=== PATIENT | female | born 1950 | race Caucasian/White ===

== ENCOUNTER 2021-04-08 19:49 | Inpatient (IN) | payer MEDICARE, MEDICAID ==
[~2021-04-08] VITALS: Ht 152 cm; Wt 87.2 kg
[2021-04-08] MEDS ORDERED: HYDR-3820 PO (20:06)
[2021-04-08] MEDS ORDERED: LORA-404 PO (20:06)
[2021-04-08] MEDS ORDERED: ALBU90AE2 INH (20:06)
[2021-04-08] MEDS ORDERED: FAMO20TA5 PO (20:06)
[2021-04-08] MEDS ORDERED: LEVO137T2 PO (20:06)
[2021-04-08] MEDS ORDERED: UMEC1BLS INH (20:06)
--- NOTE | 2021-04-08 20:15 | ED Respiratory ---
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 HOGUE[facility] IN [place]--HAS NOT SEEN HIM IN ABOUT A MONTH HAS NOT BEEN VACCINATED FOR COVID-19 STATES SHE HAD COVID-19 IN NOVEMBER PT SMOKED 2 PPD, QUIT 2017 PCP: DR. HOGUE IN [place] Allergies and Home Medications Allergies Coded Allergies: latex (Verified Allergy, Unknown, 04/08/21) Patient Home Medication List Home Medication List Reviewed: Yes Albuterol Sulfate (Proair Digihaler) 90 Mcg Aer.pw.bas, (Reported) Entered as Reported by: PORTER PAREDES on 04/08/212005 Last Action: New Order Famotidine (Famotidine) 20 Mg Tablet, (Reported) Entered as Reported by: PORTER PAREDES on 04/08/212005 Last Action: New Order Hydrocodone/Acetaminophen (Hydrocodone-Acetamin 10-325 mg) 1 Each Tablet, (R eported) Entered as Reported by: PORTER PAREDES on 04/08/212005 Last Action: New Order Levothyroxine Sodium (Levothyroxine Sodium) 137 Mcg Tablet, (Reported) Entered as Reported by: PORTER PAREDES on 04/08/212005 Last Action: New Order Lorazepam (Ativan) 0.5 Mg Tablet, (Reported) Entered as Reported by: PORTER PAREDES on 04/08/212005 Last Action: New Order Umeclidinium Brm/Vilanterol Tr (Anoro Ellipta 62.5-25 Mcg INH) 1 Each Blst.w.dev, (Reported) Entered as Reported by: PORTER PAREDES on 04/08/212005 Last Action: New Order Review of Systems Review of Systems Constitutional: see HPI, chills; No dizziness; fever EENTM: no symptoms reported Respiratory: cough, short of breath Cardiovascular: see HPI, chest pain Gastrointestinal: no symptoms reported Genitourinary: no symptoms reported Musculoskeletal: no symptoms reported Skin: no symptoms reported Psychiatric/Neurological: No Symptoms Reported Hematologic/Lymphatic: No Symptoms Reported Immunological/Allergic: no symptoms reported Past Cjkcmku-Hpjvtl-Poieio Hx Patient Social History Tobacco Use?: Yes (SMOKED 2 PPD, QUIT 2017) Smoking Status: Former Smoker (2 PPD, QUIT 2017) Use of E-Cig and/or Vaping dev: No Substance use?: No Alcohol Use?: Yes (USED TO DRINK ) Pt feels they are or have been: No Past Medical History Surgery/Hospitalization HX: CHOLECYSTECTOMY BILATERAL TUBAL LIGATION Surgeries: Yes Gallbladder, Tubal Ligation Respiratory: Yes (O2 DEPENDENT AT 2L/NC) COPD Cardiac: Yes Hypertension Neurological: No PROVIDER RELATIONS SPECIALIST History: Menopausal Genitourinary: No Gastrointestinal: No Musculoskeletal: No Endocrine: Yes Hypothyroidsim, Diabetes, Non-Insulin dep HEENT: No Cancer: No Psychosocial: No Integumentary: No Blood Disorders: No Physical Exam Vital Signs - First Documented Capillary Refill : Height: '" Weight: lbs. oz. kg; BMI Method: General Appearance: obese, other (TALKS IN FULL SENTENCES, SLIGHTLY DYSPNEIC ON ARRIVAL; MILD SPEECH IMPEDIMENT) Neck: normal inspection Respiratory: normal breath sounds, no respiratory distress, no accessory muscle use Cardiovascular: regular rate, rhythm, no murmur Gastrointestinal: non tender, soft Extremities: normal inspection, no pedal edema, no calf tenderness, normal capillary refill Neurologic/Psychiatric: motivational speaker II-XII nml as tested, no motor/sensory deficits, alert, normal mood/affect, oriented x 3 Skin: normal color, warm/dry Focused Exam Lactate Level 04/08/21 20:30: Lactic Acid Level 0.78 Lactic Acid Level Laboratory Tests Test 04/08/21 20:30 Lactic Acid Level 0.78 MMOL/L (0.50-2.00) Progress/Results/Core Measures Suspected Sepsis SIRS Temperature: Pulse: Respiratory Rate: Laboratory Tests 04/08/21 20:30: White Blood Count 15.1H Blood Pressure / Mean: 04/08/21 20:30: Lactic Acid Level 0.78 Laboratory Tests 04/08/21 20:30: Creatinine 0.58L, INR Comment 0.9, Platelet Count 230, Total Bilirubin 0.5 Results/Orders Lab Results Laboratory Tests Test 04/08/21 20:08 04/08/21 20:20 04/08/21 20:30 04/08/21 20:34 Range/Units Blood Gas Puncture Site RIGHT RADIAL Blood Gas Patient Temperature 36.3 Arterial Blood pH 7.42 7.37-7.43 Arterial Blood Partial Pressure CO2 62 H 35-45 MMHG Arterial Blood Partial Pressure O2 55 L 79-93 MMHG Arterial Blood HCO3 40 H 23-27 MMOL/L Arterial Blood Total CO2 41.9 *H 21.0-31.0 MMOL/L Arterial Blood Oxygen Saturation 87 L 94-100 % Arterial Blood Base Excess 14.5 H -2.5-2.5 MMOL/L Qasim Test YES-POS Blood Gas Ventilator Setting NO Blood Gas Inspired Oxygen 5L SARS-CoV-2 RNA (RT-PCR) Not Detected Not Detecte White Blood Count 15.1 H 4.3-11.0 10^3/uL Red Blood Count 3.69 L 3.80-5.11 10^6/uL Hemoglobin 11.5 11.5-16.0 g/dL Hematocrit 39 35-52 % Mean Corpuscular Volume 105 H 80-99 fL Mean Corpuscular Hemoglobin 31 25-34 pg Mean Corpuscular Hemoglobin Concent 30 L 32-36 g/dL Red Cell Distribution Width 13.2 10.0-14.5 % Platelet Count 230 130-400 10^3/uL Mean Platelet Volume 10.4 9.0-12.2 fL Immature Granulocyte % (Auto) 2 % Neutrophils (%) (Auto) 73 42-75 % Lymphocytes (%) (Auto) 8 L 12-44 % Monocytes (%) (Auto) 12 0-12 % Eosinophils (%) (Auto) 4 0-10 % Basophils (%) (Auto) 1 0-10 % Neutrophils # (Auto) 11.0 H 1.8-7.8 10^3/uL Lymphocytes # (Auto) 1.3 1.0-4.0 10^3/uL Monocytes # (Auto) 1.8 H 0.0-1.0 10^3/uL Eosinophils # (Auto) 0.6 H 0.0-0.3 10^3/uL Basophils # (Auto) 0.1 0.0-0.1 10^3/uL Immature Granulocyte # (Auto) 0.3 H 0.0-0.1 10^3/uL Neutrophils % (Manual) 75 % Lymphocytes % (Manual) 8 % Monocytes % (Manual) 12 % Eosinophils % (Manual) 4 % Basophils % (Manual) 1 % Anisocytosis SLIGHT Erythrocyte Sedimentation Rate 1 0-30 MM/HR Prothrombin Time 12.9 12.2-14.7 SEC INR Comment 0.9 0.8-1.4 Activated Partial Thromboplast Time 34 24-35 SEC D-Dimer 0.48 0.00-0.49 UG/ML Sodium Level 141 135-145 MMOL/L Potassium Level 4.2 3.6-5.0 MMOL/L Chloride Level 95 L 98-107 MMOL/L Carbon Dioxide Level 40 H 21-32 MMOL/L Anion Gap 6 5-14 MMOL/L Blood Urea Nitrogen 8 7-18 MG/DL Creatinine 0.58 L 0.60-1.30 MG/DL Estimat Glomerular Filtration Rate 103 BUN/Creatinine Ratio 14 Glucose Level 129 H 70-105 MG/DL Lactic Acid Level 0.78 0.50-2.00 MMOL/L Calcium Level 9.2 8.5-10.1 MG/DL Corrected Calcium 9.5 8.5-10.1 MG/DL Magnesium Level 2.2 1.6-2.4 MG/DL Total Bilirubin 0.5 0.1-1.0 MG/DL Aspartate Amino Transf (AST/SGOT) 13 5-34 U/L Alanine Aminotransferase (ALT/SGPT) 19 0-55 U/L Alkaline Phosphatase 54 40-136 U/L Lactate Dehydrogenase 243 H 125-220 U/L Total Creatine Kinase 40 29-168 U/L Creatine Kinase MB 1.4 <6.6 NG/ML Myoglobin 33.4 10.0-92.0 NG/ML Troponin I < 0.028 <0.028 NG/ML C-Reactive Protein High Sensitivity 9.16 H 0.00-0.50 MG/DL B-Type Natriuretic Peptide 36.6 <100.0 PG/ML Total Protein 6.3 L 6.4-8.2 GM/DL Albumin 3.6 3.2-4.5 GM/DL Procalcitonin 0.03 <0.10 NG/ML Group A Streptococcus Screen NEGATIVE NEGATIVE My Orders Orders - SEBAS LUCAS DO Ed Iv/Invasive Line Start (04/08/21 20:03) Ekg Tracing (04/08/21 20:03) O2 (04/08/21 20:03) Monitor-Rhythm Ecg Trace Only (04/08/21 20:03) BNP (04/08/21 20:03) Cbc With Automated Diff (04/08/21 20:03) Comprehensive Metabolic Panel (04/08/21 20:03) Creatine Kinase (04/08/21 20:03) Creatine Kinase Mb (04/08/21 20:03) Hs C Reactive Protein (04/08/21 20:03) Fibrin Degradation Products (04/08/21 20:) Drug Screen Stat (Urine) (04/08/21 20:03) Lactic Acid Analyzer (04/08/21 20:03) Magnesium (04/08/21 20:03) Procalcitonin (Pct) (04/08/21 20:03) Protime With Inr (04/08/21 20:03) Partial Thromboplastin Time (04/08/21 20:03) Ua Culture If Indicated (04/08/21 20:03) Blood Culture (04/08/21 20:03) Erythrocyte Sedimentation Rate (04/08/21 20:03) Myoglobin Serum (04/08/21 20:03) Troponin I (04/08/21 20:03) Chest 1 View, Ap/Pa Only (04/08/21 20:03) LDH (04/08/21 20:03) Covid 19 Inhouse Test (04/08/21 20:03) Isolation Central Supply Req (04/08/21 20:03) Arterial Blood Gas (04/08/21 20:10) Rt Request For Service (04/08/21 20:27) Dexamethasone Injection (Decadron Inje (04/08/21 20:30) Rapid Strep A Screen (04/08/21 20:30) Manual Differential (04/08/21 20:30) Ceftriaxone (Rocephin) (04/08/21 21:45) Azithromycin Injection (Zithromax Inject (04/08/21 21:45) Medications Given in ED Current Medications Medications Dose Ordered Sig/Emre Route Start Time Stop Time Status Last Admin Dose Admin Azithromycin 500 mg/Sodium Chloride 255 ml @ 250 mls/hr ONCE ONCE IV 04/08/21 21:45 04/08/21 22:46 DC 04/08/21 21:58 250 MLS/HR Ceftriaxone Sodium 1000 mg/ Sterile Water 10 ml @ 200 mls/hr ONCE ONCE IV 04/08/21 21:45 04/08/21 21:47 DC 04/08/21 21:58 200 MLS/HR Dexamethasone Sodium Phosphate 10 mg ONCE ONCE IV 04/08/21 20:30 04/08/21 20:31 DC 04/08/21 20:36 10 MG Vital Signs/I&O 04/08/21 04/08/21 04/08/21 04/08/21 19:57 19:57 19:57 21:05 Temp 36.3 Pulse 96 Resp 22 B/P (MAP) 147/107 (120) Pulse Ox 99 99 99 O2 Delivery Nasal Cannula Nasal Cannula Nasal Cannula Nasal Cannula O2 Flow Rate 3.00 5.00 5.00 3.00 Capillary Refill : Progress Note : Progress Note PLACED IN ISOLATION ROOM PPE WORN AT ALL TIMES COVID-19 TESTING PERFORMED AND WAS NEGATIVE PLACED ON O2 AND SATS UP TO 100% ON 4L/NC--TITRATED DOWN TO 3L/NC AND O2 SATS 98% REPEAT ABG'S DRAWN, WITH DECREASED PH, INCREASED PCO2, BUT PT WITH NO WORSENING OF SYMPTOMS, AND MAINTAINING O2 SATS OF 98% ON 3L/NC PT PLACED ON BIPAP NO DETERIORATION IN PT'S CONDITION DURING ER STAY PT HAD NO COMPLAINTS FOR REMAINDER OF ER STAY ECG Initial ECG Impression Date: Apr 08, 2021 Initial ECG Impression Time: 20:23 Initial ECG Rate: 91 Initial ECG Rhythm: Normal Sinus Initial ECG Comparisson: No Previous ECG Available Diagnostic Imaging Comments CXR--PER RADIOLOGIST REPORT AT 2141 FINDINGS: The cardiac silhouette is mildly enlarged. Mild central pulmonary vascular congestion is present. Left greater than right bilateral predominantly interstitial opacities. No significant pleural effusion. No pneumothorax. No acute osseous abnormality. IMPRESSION: Left greater than right interstitial opacities are present. This may relate to interstitial edema given cardiomegaly and central pulmonary vascular congestion. Interstitial infiltrate, including Covid 19 would be an additional consideration. : Reviewed: Reviewed by Me Departure Communication (Admissions) 2199--SPOKE WITH DR. LORA, HOSPITALIST, ACCEPTS PT FOR ADMIT. Impression Primary Impression: Acute on chronic respiratory failure with hypoxia and hypercapnia Additional Impressions: Bilateral pneumonia UTI (urinary tract infection) Disposition: ADMITTED INPATIENT Condition: Stable Admissions Decision to Admit Reason: Admit from ER (General) Decision to Admit/Date: Apr 08, 2021 Time/Decision to Admit Time: 22:00 SEBAS LUCAS DO Apr 08, 2021 20:15
[2021-04-08 20:23] LABS: ABG BASE EXCESS 14.5 MMOL/L (-2.5-2.5); ABG OXYGEN SATURATION 87 % (94-100); ABG PCO2 62 MMHG (35-45); ABG PH 7.42 (7.37-7.43); ABG PO2 55 MMHG (79-93)
[2021-04-08 20:25] LABS: ABG TCO2 41.9 MMOL/L (21.0-31.0); ALLENS TEST YES-POS; INSPIRED O2 5L; PATIENT TEMP 36.3; VENTILATOR NO
[2021-04-08 20:44] LABS: BASOPHILS # (AUTO) 0.1 10^3/uL (0.0-0.1); BASOPHILS % (AUTO) 1 % (0-10); EOSINOPHILS # (AUTO) 0.6 10^3/uL (0.0-0.3); EOSINOPHILS % (AUTO) 4 % (0-10); HEMATOCRIT 39 % (35-52); HEMOGLOBIN 11.5 g/dL (11.5-16.0); LYMPHOCYTES # (AUTO) 1.3 10^3/uL (1.0-4.0); LYMPHOCYTES % (AUTO) 8 % (12-44); MEAN CORPUSCULAR HEMOGLOBIN 31 pg (25-34); MEAN CORPUSCULAR HGB CONC 30 g/dL (32-36); MEAN CORPUSCULAR VOLUME 105 fL (80-99); MEAN PLATELET VOLUME 10.4 fL (9.0-12.2); MONOCYTES # (AUTO) 1.8 10^3/uL (0.0-1.0); MONOCYTES % (AUTO) 12 % (0-12); NEUTROPHILS % (AUTO) 73 % (42-75); PLATELET COUNT 230 10^3/uL (130-400); WHITE BLOOD COUNT 15.1 10^3/uL (4.3-11.0)
[2021-04-08 20:59] LABS: FIBRIN DEGRADATION PRODUCTS 0.48 UG/ML (0.00-0.49); INR 0.9 (0.8-1.4); PROTHROMBIN TIME PATIENT 12.9 SEC (12.2-14.7)
[2021-04-08 21:06] LABS: ALANINE AMINOTRANSFERASE 19 U/L (0-55); ALBUMIN 3.6 GM/DL (3.2-4.5); ALKALINE PHOSPHATASE 54 U/L (40-136); BILIRUBIN,TOTAL 0.5 MG/DL (0.1-1.0); BUN/CREATININE RATIO 14; CALCIUM 9.2 MG/DL (8.5-10.1); CARBON DIOXIDE 40 MMOL/L (21-32); CHLORIDE 95 MMOL/L (98-107); CREATINE KINASE 40 U/L (29-168); CREATININE SERUM 0.58 MG/DL (0.60-1.30); GFR ESTIMATED 103; GLUCOSE 129 MG/DL (70-105); MAGNESIUM 2.2 MG/DL (1.6-2.4); POTASSIUM 4.2 MMOL/L (3.6-5.0); SODIUM 141 MMOL/L (135-145); TOTAL PROTEIN 6.3 GM/DL (6.4-8.2)
[2021-04-08 21:31] LABS: CREATINE KINASE MB 1.4 NG/ML (<6.6)
--- NOTE | 2021-04-08 21:36 | Diagnostic Imaging Report ---
INDICATION: Dyspnea. COMPARISON: None available. TECHNIQUE: Single radiograph of the chest dated April 08, 2021. FINDINGS: The cardiac silhouette is mildly enlarged. Mild central pulmonary vascular congestion is present. Left greater than right bilateral predominantly interstitial opacities. No significant pleural effusion. No pneumothorax. No acute osseous abnormality. IMPRESSION: Left greater than right interstitial opacities are present. This may relate to interstitial edema given cardiomegaly and central pulmonary vascular congestion. Interstitial infiltrate, including Covid 19 would be an additional consideration. Dictated by: Dictated on workstation # [id number]
[2021-04-08 21:40] LABS: ANISOCYTOSIS SLIGHT; BASOPHILS % (MANUAL) 1 %; EOSINOPHILS % (MANUAL) 4 %; LYMPHOCYTES % (MANUAL) 8 %; MONOCYTES % (MANUAL) 12 %; NEUTROPHILS % (MANUAL) 75 %
[2021-04-08 21:41] LABS: ERYTHROCYTE SEDIMENTATION RATE 1 MM/HR (0-30)
[2021-04-08] MEDS ORDERED: cefTRIAXone 1,000 MG in WATER (STERILE) FOR INJECTION 10 ML IV ONE (21:45)
[2021-04-08] MEDS ORDERED: AZITHROMYCIN INJECTION 500 MG in NS (IVPB) 250 ML IV ONE (21:45)
[2021-04-08 22:32] LABS: ABG BASE EXCESS 13.1 MMOL/L (-2.5-2.5); ABG OXYGEN SATURATION 98 % (94-100); ABG PO2 117 MMHG (79-93)
[2021-04-08 22:34] LABS: ABG PCO2 94 MMHG (35-45); ABG PH 7.26 (7.37-7.43)
[2021-04-08 22:35] LABS: ABG TCO2 43.3 MMOL/L (21.0-31.0); ALLENS TEST YES-POS; INSPIRED O2 3L; PATIENT TEMP 36.3; VENTILATOR NO
[2021-04-08 22:54] LABS: BILIRUBIN,URINE NEGATIVE (NEGATIVE); CLARITY,URINE CLEAR; COLOR,URINE YELLOW; GLUCOSE, URINE (UA) NEGATIVE (NEGATIVE); KETONES,URINE NEGATIVE (NEGATIVE); LEUKOCYTE ESTERASE ,URINE 1+ (NEGATIVE); NITRITE,URINE NEGATIVE (NEGATIVE); PH,URINE 7.5 (5-9); PROTEIN,URINE NEGATIVE (NEGATIVE)
[2021-04-08 22:55] VITALS: BP 123/75
[2021-04-08 23:19] LABS: BACTERIA,URINE TRACE /HPF
[2021-04-08 23:20] LABS: AMPHETAMINE SCREEN, URINE NEGATIVE (NEGATIVE); BARBITURATE SCREEN URINE NEGATIVE (NEGATIVE); BENZODIAZEPINES SCREEN URINE NEGATIVE (NEGATIVE); CANNABINOID SCREEN, URINE NEGATIVE (NEGATIVE); COCAINE SCREEN URINE NEGATIVE (NEGATIVE); METHADONE STAT NEGATIVE (NEGATIVE); METHAMPHETAMINE SCREEN URINE S NEGATIVE (NEGATIVE); OPIATE SCREEN URINE POSITIVE (NEGATIVE); OXYCODONE STAT NEGATIVE (NEGATIVE); PROPOXYPHENE STAT NEGATIVE (NEGATIVE); TRICYCLIC ANTIDEPRESSANTS SCRE NEGATIVE (NEGATIVE)
[2021-04-08 23:54] VITALS: BP 135/81
[2021-04-09] VITALS (12 sets, daily range): BP systolic 107–147; BP diastolic 62–107
[2021-04-09 00:42] LABS: ABG BASE EXCESS 13.2 MMOL/L (-2.5-2.5); ABG OXYGEN SATURATION 96 % (94-100); ABG PO2 86 MMHG (79-93)
[2021-04-09] MEDS ORDERED: ONDANSETRON 4 MG/2 ML (SDV) Z0FRAN IV PRN (00:45)
[2021-04-09] MEDS ORDERED: 1/2 NS IV SOLUTION 1,000 ML IV SCH (00:45)
[2021-04-09] MEDS ORDERED: IBUPROFEN 800 MG (MOTRIN) TAB PO PRN (00:45)
[2021-04-09 00:46] LABS: ABG PCO2 83 MMHG (35-45); ABG TCO2 42.5 MMOL/L (21.0-31.0); ALLENS TEST YES-POS
[2021-04-09 00:47] LABS: INSPIRED O2 30%; PATIENT TEMP 36.9; VENTILATOR NO
[2021-04-09] MEDS: methylPREDNISolone 125 MG (Solu-MEDROL) VIAL IV SCH ×2 (01:01→05:46)
[2021-04-09] MEDS: RT-ALBUTEROL/IPRATROPIUM 3 ML (DUONEB) VIAL INH SCH ×6 (01:36→22:56)
[2021-04-09 04:37] LABS: ABG BASE EXCESS 13.7 MMOL/L (-2.5-2.5); ABG OXYGEN SATURATION 93 % (94-100); ABG PH 7.36 (7.37-7.43); ABG PO2 72 MMHG (79-93)
[2021-04-09 04:40] LABS: ABG PCO2 72 MMHG (35-45); ABG TCO2 42.1 MMOL/L (21.0-31.0)
[2021-04-09 04:41] LABS: ALLENS TEST YES-POS; INSPIRED O2 35%; PATIENT TEMP 36.5; VENTILATOR NO
[2021-04-09 06:03] LABS: BASOPHILS % (AUTO) 0 % (0-10); EOSINOPHILS % (AUTO) 0 % (0-10); HEMATOCRIT 38 % (35-52); HEMOGLOBIN 11.3 g/dL (11.5-16.0); LYMPHOCYTES # (AUTO) 0.5 10^3/uL (1.0-4.0); LYMPHOCYTES % (AUTO) 4 % (12-44); MEAN CORPUSCULAR HEMOGLOBIN 31 pg (25-34); MEAN CORPUSCULAR HGB CONC 29 g/dL (32-36); MEAN CORPUSCULAR VOLUME 105 fL (80-99); MEAN PLATELET VOLUME 10.8 fL (9.0-12.2); MONOCYTES # (AUTO) 0.1 10^3/uL (0.0-1.0); MONOCYTES % (AUTO) 1 % (0-12); NEUTROPHILS # (AUTO) 10.4 10^3/uL (1.8-7.8); NEUTROPHILS % (AUTO) 93 % (42-75); PLATELET COUNT 207 10^3/uL (130-400); WHITE BLOOD COUNT 11.2 10^3/uL (4.3-11.0)
[2021-04-09 06:17] LABS: POTASSIUM 4.5 MMOL/L (3.6-5.0)
[2021-04-09 06:18] LABS: CALCIUM 8.9 MG/DL (8.5-10.1)
[2021-04-09 06:22] LABS: CREATININE SERUM 0.52 MG/DL (0.60-1.30)
[2021-04-09] MEDS: ENOXAPARIN 40 MG/0.4 ML (LOVENOX) SYR SC SCH (08:57)
--- NOTE | 2021-04-09 10:30 | Tele-ICU Consult ---
History of Present Illness History of Present Illness Date Seen by Provider: Apr 09, 2021 Time Seen by Provider: 09:50 Date of Admission Patient acknowledged, consented, and participated in this virtual visit which was conducted using real time audio/video. Thank you for asking us to see this patient for respiratory insufficiency and distress due to AECOPD with hypoxia and hypercapnia caused by B pna. HPC: Recent events: Presented through ER and placed on BiPAP 20/8 at 35%, duonebs, medrol and abx. PMH: COPD on 3 LPM home O2, htn., DM2, hypothyroid, GERD. SH: smoking history: quit 2017. FH: Non-contributory ROS: limited by patient's clinical condition, but limited to HPI PE: VSS. Obese. Mild distress. O2 sat 99 % on 7 LPM high flow placed on patient in order to eat. HEENT: No obvious masses, adenopathy or JVD. Chest: clear to auscultation. CV: RRR S1 S2 No murmur or added sounds. Abd: Non-tender. Bowel sounds Y. : Unremarkable. Mahan N. INTEGRATION ANALYST/psychiatric: Alert and oriented, grossly intact. No obvious focal findings. Extremities: No edema. Capillary refill < 3 seconds. Skin: unremarkable. Results: Elevated WCC 15.1 CO2 40. Decreased Hb 11.1 AB.36/72/72 on BiPAP. A/P: Respiratory insufficiency/distress: Cont Duonebs. Could decrease Solumedrol to daily and in AM 03/10/21 switch to Prednisone 40 mg/day for 5 days. Wean O2 as tolerated. Available chart/ vitals / labs /images reviewed. CXR w B infilts L> R. Video assessment done using teleICU camera, rest of exam as per RN. Monitor for increasing oxygenation needs and/or need for ICU transfer. Critical Care: critically ill patient. Cont AZT and Ceftriaxone. Cont Lovenox Discussed with Dr. Choudhury and DILMA Gurrola. Asked RN to reach out to eICU if any questions or concerns later. Time spent with patient/coordination of care with other health professionals (mins): 40 Allergies and Home Medications Allergies Coded Allergies: latex (Verified Allergy, Unknown, 04/08/21) Past Medical/Social/Family Hx Patient Social History Tobacco Use?: No Smoking Status: Former Smoker Use of E-Cig and/or Vaping dev: No Substance use?: No Alcohol Use?: No Pt stated abuse/neglect: No Immunizations Up To Date Influenza Vaccine Up-to-Date: No; Not Current Tetanus Booster (TDap): Unknown Hepatitis A: No Hepatitis B: No TB Skin Test: None Current Status status: No status: No Advance Directives: No Communicates: Verbally Primary Language: Argentine Preferred Spoken Language: Argentine Is interpretation needed?: No Sensory deficits: Vision impairment Implanted or Applied Medical D: None Review of Systems Constitutional: weakness, other (see free text) All Other Systems Reviewed Negative Unless Noted: Yes Sepsis Event Evaluation Height, Weight, BMI Height: '" Weight: lbs. oz. kg; 37.43 BMI Method: Exam Exam Patient acknowledged, consented, and participated in this virtual visit which was conducted using real time audio/video Vital Signs Date Time Temp Pulse Resp B/P (MAP) Pulse Ox O2 Delivery O2 Flow Rate FiO2 04/09/21 09:51 92 High Flow N/C 7.00 04/09/21 09:50 89 Nasal Cannula 5.00 04/09/21 09:46 Nasal Cannula 4.00 04/09/21 09:45 92 Nasal Cannula 4.00 04/09/21 08:09 35.8 04/09/21 07:52 73 20 96 35.00 04/09/21 07:00 69 04/09/21 04:27 36.4 NIV Bilevel 35.00 04/09/21 04:00 69 21 115/66 (82) 94 NIV Bilevel 35.00 04/09/21 02:00 76 20 117/64 (81) 93 NIV Bilevel 35.00 04/09/21 01:36 69 20 94 35.00 04/09/21 01:06 36.3 96 99 32 04/09/21 01:00 84 21 146/105 (119) 95 NIV Bilevel 35.00 04/09/21 00:46 80 04/09/21 00:43 36.5 87 18 143/93 97 NIV Bilevel 35.00 04/09/21 00:43 36.5 78 18 143/93 (110) 97 NIV Bilevel 35.00 04/09/21 00:37 97 NIV Bilevel 35 04/09/21 00:24 36.7 77 18 156/85 94 NIV Bilevel 30.00 04/08/21 23:54 84 20 96 30.00 04/08/21 22:55 92 24 97 30.00 04/08/21 21:05 99 Nasal Cannula 3.00 04/08/21 19:57 99 Nasal Cannula 5.00 04/08/21 19:57 36.3 96 22 147/107 (120) 99 Nasal Cannula 5.00 04/08/21 19:57 Nasal Cannula 3.00 I & O 04/09/21 07:00 Intake Total 290 ml Output Total 125 ml Balance 165 ml Height & Weight Height: '" Weight: lbs. oz. kg; 37.43 BMI Method: General Appearance: Obese Capillary Refill: Less Than 3 Seconds Peripheral Pulses: 1+ Dorsalis Pedis (R), 1+ Left Dors-Pedis (L) Gastrointestinal: non tender, soft Results Lab Laboratory Tests 04/08/21 20:30 04/09/21 05:25 Assessment/Plan Assessment/Plan See free text Critical Care: Critically Ill Patient Advance Care Discussion: developed treatment plan Time spent on discussion(mins): 5 JACK KLEIN MD Apr 09, 2021 10:30
[2021-04-09] MEDS ORDERED: IBUP-2473 PO (11:15)
[2021-04-09] MEDS ORDERED: CALC-250 PO (11:15)
[2021-04-09] MEDS ORDERED: IPRA3AMP31 NEB (11:15)
[2021-04-09] MEDS ORDERED: guaiFENesin (MUCINEX) 600 MG TAB PO ONE (11:30)
--- NOTE | 2021-04-09 11:56 | History & Physical-Hospitalist ---
History of Present Illness HPI/Chief Complaint Taylor Matamoros is a 70 year old female who presented with shortness of breath. She also reports cough. She has had fevers. She has been coughing up phlegm. She denies chest pain. She denies abdominal pain. She says she has had nausea and vomiting. She reports having some diarrhea. She had reportedly ran out of her oxygen at home and was hypoxic on arrival. She has a history of COPD. She is a former smoker. Source: patient Exam Limitations: no limitations Date Seen 04/09/21 Time Seen by a Provider: 08:45 Attending Physician Sarai Ayala DO PCP No,Local Physician Referring Physician Date of Admission Apr 08, 2021 at 22:00 Home Medications & Allergies Home Medications Reviewed patient Home Medication Reconciliation performed by pharmacy medication reconciliations injection molding process technician and/or nursing. Patients Allergies have been reviewed. Allergies Allergies Coded Allergies latex (Verified Allergy, Unknown, 04/08/21) Past Rdmqtdf-Bfsont-Dozcyw Hx Patient Social History Tobacco Use?: No Smoking Status: Former Smoker Use of E-Cig and/or Vaping dev: No Substance use?: No Alcohol Use?: No Pt feels they are or have been: No Immunizations Up To Date Tetanus Booster (TDap): Unknown Hepatitis A: No Hepatitis B: No Current Status status: No status: No Advance Directives: No Communicates: Verbally Primary Language: Ivorian Preferred Spoken Language: Ivorian Is interpretation needed?: No Sensory deficits: Vision impairment Implanted or Applied Medical D: None Past Medical History Surgeries: Gallbladder, Tubal Ligation COPD Hypertension 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 History: Menopausal Hypothyroidsim, Diabetes, Non-Insulin dep Blood Disorders: No Family Medical History No Pertinent Family Hx Review of Systems Constitutional: fever, malaise EENTM: no symptoms reported Respiratory: cough, phlegm, short of breath Cardiovascular: no symptoms reported Gastrointestinal: diarrhea, nausea, vomiting Genitourinary: no symptoms reported Musculoskeletal: no symptoms reported Skin: no symptoms reported Psychiatric/Neurological: No Symptoms Reported Physical Exam Physical Exam Vital Signs Vital Signs - First Documented 04/09/21 00:37 FiO2 35 Capillary Refill : Less Than 3 Seconds Height, Weight, BMI Height: '" Weight: lbs. oz. kg; 37.43 BMI Method: General Appearance: No Apparent Distress, Obese HEENT: PERRL/EOMI, Other (wearing BiPAP) Neck: Normal Inspection, Supple Respiratory: Lungs Clear, No Respiratory Distress, Other (wearing BiPAP) Cardiovascular: Regular Rate, Rhythm, No Edema, No Murmur Gastrointestinal: Normal Bowel Sounds, Non Tender, Soft Extremity: Normal Inspection, Non Tender, No Pedal Edema Neurologic/Psychiatric: Alert, Oriented x3, No Motor/Sensory Deficits, Normal Mood/Affect Skin: Normal Color, Warm/Dry Results Results/Procedures Labs Laboratory Tests 04/08/21 20:30 04/09/21 05:25 Patient resulted labs reviewed. Imaging: Reviewed Imaging Films, Reviewed Imaging Report Assessment/Plan Admission Diagnosis Acute on chronic respiratory failure with hypoxia and hypercapnia Admission Status: Inpatient Order (span 2 midnights) Reason for Inpatient Admission: Respiratory failure Assessment and Plan Acute on chronic respiratory failure with hypoxia and hypercapnia COPD with acute exacerbation Community acquired pneumonia ABG with acute hypercapnia, hypoxia Started on BiPAP Started on steroids, decrease dose Chest xray with left > right infiltrates Started on Rocephin and Azithromycin Consult pulmonology, appreciate assistance, discussed case with Dr. Reza Hypothyroidism GERD Continue home meds Obesity Clincially significant, no acute management needs DVT prophylaxis: Lovenox Diagnosis/Problems Diagnosis/Problems (1) Acute on chronic respiratory failure with hypoxia and hypercapnia Status: Acute (2) COPD with acute exacerbation Status: Acute (3) PNA (pneumonia) Status: Acute (4) Obesity Status: Chronic (5) Hypothyroidism Status: Chronic (6) GERD (gastroesophageal reflux disease) Status: Chronic KURTIS LOPEZ MD Apr 09, 2021 11:56
[2021-04-09] MEDS: RT-ALBUTEROL HFA 8.5 GM INHALER IH SCH ×2 (18:02→22:57)
[2021-04-09] MEDS: guaiFENesin (MUCINEX) 600 MG TAB PO SCH (20:04)
[2021-04-09] MEDS: AZITHROMYCIN 500 MG/NS 250 ML IVPB IV SCH ×2 (20:04)
[2021-04-09] MEDS: cefTRIAXone 1,000 MG/SWFI 10 ML IV PUSH IV SCH ×2 (20:04)
[2021-04-10] VITALS (8 sets, daily range): BP systolic 113–158; BP diastolic 51–97
[2021-04-10] MEDS: RT-ALBUTEROL/IPRATROPIUM 3 ML (DUONEB) VIAL INH SCH ×3 (02:02→11:12)
[2021-04-10] MEDS: RT-ALBUTEROL HFA 8.5 GM INHALER IH SCH ×3 (02:02→21:19)
[2021-04-10] MEDS: ACETAMINOPHEN 500 MG TAB (TYLENOL) PO PRN ×2 (05:42→20:14)
[2021-04-10] MEDS: predniSONE 20 MG TAB PO SCH (05:42)
[2021-04-10 05:44] LABS: BASOPHILS % (AUTO) 0 % (0-10); EOSINOPHILS # (AUTO) 0.1 10^3/uL (0.0-0.3); EOSINOPHILS % (AUTO) 0 % (0-10); HEMATOCRIT 37 % (35-52); HEMOGLOBIN 11.2 g/dL (11.5-16.0); LYMPHOCYTES # (AUTO) 1.6 10^3/uL (1.0-4.0); LYMPHOCYTES % (AUTO) 9 % (12-44); MEAN CORPUSCULAR HEMOGLOBIN 32 pg (25-34); MEAN CORPUSCULAR HGB CONC 30 g/dL (32-36); MEAN CORPUSCULAR VOLUME 105 fL (80-99); MEAN PLATELET VOLUME 10.9 fL (9.0-12.2); MONOCYTES # (AUTO) 1.7 10^3/uL (0.0-1.0); MONOCYTES % (AUTO) 10 % (0-12); NEUTROPHILS # (AUTO) 13.9 10^3/uL (1.8-7.8); NEUTROPHILS % (AUTO) 80 % (42-75); PLATELET COUNT 227 10^3/uL (130-400); WHITE BLOOD COUNT 17.4 10^3/uL (4.3-11.0)
[2021-04-10 06:07] LABS: POTASSIUM 4.5 MMOL/L (3.6-5.0)
[2021-04-10 06:08] LABS: CALCIUM 9.1 MG/DL (8.5-10.1)
[2021-04-10 06:12] LABS: CREATININE SERUM 0.57 MG/DL (0.60-1.30)
[2021-04-10] MEDS: guaiFENesin (MUCINEX) 600 MG TAB PO SCH ×2 (08:38→20:14)
[2021-04-10] MEDS: ENOXAPARIN 40 MG/0.4 ML (LOVENOX) SYR SC SCH (08:38)
[2021-04-10] MEDS: FAMOTIDINE 20 MG (PEPCID) TABLET PO SCH (08:38)
[2021-04-10] MEDS: LEVOTHYROXINE 112 MCG (LEVOTHROID) TAB PO SCH (08:38)
[2021-04-10] MEDS: LEVOTHYROXINE 25 MCG (LEVOTHROID) TAB PO SCH (08:38)
[2021-04-10] MEDS ORDERED: methylPREDNISolone 125 MG (Solu-MEDROL) VIAL IV SCH (09:00)
[2021-04-10] MEDS: UMECLIDINIUM BROMIDE (INCRUSE ELLIPTA) 7'S IH SCH (11:12)
[2021-04-10] MEDS: LORazepam 0.5 MG (ATIVAN) TABLET PO PRN ×2 (11:19→21:54)
--- NOTE | 2021-04-10 11:44 | Progress Note - Hospitalist ---
Subjective HPI/CC On Admission Date Seen by Provider: Apr 10, 2021 Time Seen by Provider: 09:10 Taylor Matamoros is a 70 year old female who presented with shortness of breath. She also reports cough. She has had fevers. She has been coughing up phlegm. She denies chest pain. She denies abdominal pain. She says she has had nausea and vo miting. She reports having some diarrhea. She had reportedly ran out of her oxygen at home and was hypoxic on arrival. She has a history of COPD. She is a former smoker. Subjective/Events-last exam She is doing better today. She is sitting in her bedside chair. She is still a bit short of breath. She needs to use the restroom. Focused Exam Lactate Level 04/08/21 20:30: Lactic Acid Level 0.78 Objective Exam Vital Signs Vital Signs Date Time Temp Pulse Resp B/P (MAP) Pulse Ox O2 Delivery O2 Flow Rate FiO2 04/10/21 11:20 36.4 100 20 127/51 (76) 96 High Flow N/C 3.00 04/09/21 01:06 32 Capillary Refill : Less Than 3 Seconds General Appearance: No Apparent Distress, Obese Respiratory: Lungs Clear, Normal Breath Sounds, No Respiratory Distress Cardiovascular: Regular Rate, Rhythm, No Edema, Systolic Murmur Gastrointestinal: Normal Bowel Sounds, Non Tender, Soft Extremity: Normal Inspection, Non Tender, No Pedal Edema Neurologic/Psychiatric: Alert, No Motor/Sensory Deficits, Normal Mood/Affect Skin: Normal Color, Warm/Dry Results/Procedures Lab Laboratory Tests 04/10/21 05:20 Patient resulted labs reviewed. Imaging: Reviewed Imaging Films, Reviewed Imaging Report Assessment/Plan Assessment and Plan Assess & Plan/Chief Complaint Acute on chronic respiratory failure with hypoxia and hypercapnia COPD with acute exacerbation Community acquired pneumonia Continue Prednisone MAT protocol Continue Rocephin and Azithromycin Pulmonology following, appreciate assistance Hypothyroidism GERD Continue home meds Obesity Clincially significant, no acute management needs DVT prophylaxis: Lovenox Diagnosis/Problems Diagnosis/Problems (1) Acute on chronic respiratory failure with hypoxia and hypercapnia Status: Acute (2) COPD with acute exacerbation Status: Acute (3) PNA (pneumonia) Status: Acute (4) Obesity Status: Chronic (5) Hypothyroidism Status: Chronic (6) GERD (gastroesophageal reflux disease) Status: Chronic KURTIS LOPEZ MD Apr 10, 2021 11:44
[2021-04-10] MEDS: cefTRIAXone 1,000 MG/SWFI 10 ML IV PUSH IV SCH ×2 (20:14)
[2021-04-10] MEDS: AZITHROMYCIN 500 MG/NS 250 ML IVPB IV SCH ×2 (21:35)
[2021-04-11] MEDS: RT-ALBUTEROL HFA 8.5 GM INHALER IH SCH ×3 (02:49→15:39)
[2021-04-11] MEDS: RT-ALBUTEROL/IPRATROPIUM 3 ML (DUONEB) VIAL INH PRN ×2 (02:49→07:48)
[2021-04-11 03:51] VITALS: BP 138/77
[2021-04-11 05:17] LABS: ABG BASE EXCESS 13.6 MMOL/L (-2.5-2.5); ABG OXYGEN SATURATION 94 % (94-100); ABG PCO2 67 MMHG (35-45); ABG PH 7.39 (7.37-7.43); ABG PO2 80 MMHG (79-93)
[2021-04-11 05:20] LABS: ABG TCO2 41.1 MMOL/L (21.0-31.0)
[2021-04-11 05:21] LABS: ALLENS TEST YES-POS; INSPIRED O2 NOT INDICATED; PATIENT TEMP 37.6; VENTILATOR NO
[2021-04-11 05:49] LABS: BASOPHILS # (AUTO) 0.1 10^3/uL (0.0-0.1); BASOPHILS % (AUTO) 1 % (0-10); EOSINOPHILS # (AUTO) 0.2 10^3/uL (0.0-0.3); EOSINOPHILS % (AUTO) 2 % (0-10); HEMATOCRIT 40 % (35-52); HEMOGLOBIN 11.5 g/dL (11.5-16.0); LYMPHOCYTES # (AUTO) 2.2 10^3/uL (1.0-4.0); LYMPHOCYTES % (AUTO) 17 % (12-44); MEAN CORPUSCULAR HEMOGLOBIN 31 pg (25-34); MEAN CORPUSCULAR HGB CONC 29 g/dL (32-36); MEAN CORPUSCULAR VOLUME 105 fL (80-99); MEAN PLATELET VOLUME 10.6 fL (9.0-12.2); MONOCYTES # (AUTO) 1.4 10^3/uL (0.0-1.0); MONOCYTES % (AUTO) 11 % (0-12); NEUTROPHILS # (AUTO) 8.5 10^3/uL (1.8-7.8); NEUTROPHILS % (AUTO) 68 % (42-75); PLATELET COUNT 246 10^3/uL (130-400); WHITE BLOOD COUNT 12.6 10^3/uL (4.3-11.0)
[2021-04-11 05:56] LABS: POTASSIUM 4.1 MMOL/L (3.6-5.0)
[2021-04-11 05:57] LABS: CALCIUM 9.1 MG/DL (8.5-10.1)
[2021-04-11 06:01] LABS: CREATININE SERUM 0.6 MG/DL (0.60-1.30)
[2021-04-11 07:30] VITALS: BP 104/52
[2021-04-11] MEDS: UMECLIDINIUM BROMIDE (INCRUSE ELLIPTA) 7'S IH SCH (07:53)
[2021-04-11] MEDS: FAMOTIDINE 20 MG (PEPCID) TABLET PO SCH (08:25)
[2021-04-11] MEDS: LEVOTHYROXINE 112 MCG (LEVOTHROID) TAB PO SCH (08:25)
[2021-04-11] MEDS: ENOXAPARIN 40 MG/0.4 ML (LOVENOX) SYR SC SCH (08:25)
[2021-04-11] MEDS: guaiFENesin (MUCINEX) 600 MG TAB PO SCH (08:25)
[2021-04-11] MEDS: predniSONE 20 MG TAB PO SCH (08:25)
[2021-04-11 12:02] VITALS: BP 101/54
[2021-04-11] MEDS: LEVOTHYROXINE 25 MCG (LEVOTHROID) TAB PO SCH (12:07)
[2021-04-11] MEDS ORDERED: CEFD300C3 PO (14:43)
[2021-04-11] MEDS ORDERED: PRED10TA22 PO (14:43)
--- NOTE | 2021-04-11 16:00 | Discharge Summary ---
Discharge Summary Hospital Course Was the Problem List Reviewed?: Yes Problems/Dx: (1) Acute on chronic respiratory failure with hypoxia and hypercapnia Status: Acute (2) COPD with acute exacerbation Status: Acute (3) PNA (pneumonia) Status: Acute (4) Obesity Status: Chronic (5) Hypothyroidism Status: Chronic (6) GERD (gastroesophageal reflux disease) Status: Chronic Hospital Course Date of Admission: Apr 08, 2021 at 22:00 Admission Diagnosis : Acute on chronic respiratory failure with hypoxia and hypercapnia due to COPD exacerbation and pneumonia Family Physician/Provider: No,Local Physician Date of Discharge: 04/11/21 Discharge Diagnosis: Acute on chronic respiratory failure with hypoxia and hypercapnia due to COPD exacerbation and pneumonia Hospital Course: Taylor Matamoros is a 70 year old female who was admitted with acute on chronic respiratory failure with hypoxia and hypercapnia due to COPD exacerbation and pneumonia. She required BiPAP due to her hypercapnia which resolved. She was treated with steroids and breathing treatments for COPD exacerbation. She was treated with IV antibiotics for pneumonia. She should continue oral Omnicef and a prednisone taper on discharge. Her home oxygen concentrator was broken and was repaired prior to her returning home. She should follow up with her primary care physician. She was discharged home in stable condition. Labs and Pending Lab Test: Laboratory Tests 04/11/21 05:00: Blood Gas Puncture Site NOT INDICATED, Blood Gas Patient Temperature 37.6, Arterial Blood pH 7.39, Arterial Blood Partial Pressure CO2 67H, Arterial Blood Partial Pressure O2 80, Arterial Blood HCO3 39H, Arterial Blood Total CO2 41.1*H , Arterial Blood Oxygen Saturation 94, Arterial Blood Base Excess 13.6H, Qasim Test YES-POS, Blood Gas Ventilator Setting NO, Blood Gas Inspired Oxygen NOT INDICATED 04/11/21 05:10: White Blood Count 12.6H, Red Blood Count 3.76L, Hemoglobin 11.5, Hematocrit 40, Mean Corpuscular Volume 105H, Mean Corpuscular Hemoglobin 31, Mean Corpuscular Hemoglobin Concent 29L, Red Cell Distribution Width 13.8, Platelet Count 246, Mean Platelet Volume 10.6, Immature Granulocyte % (Auto) 1, Neutrophils (%) (Auto) 68, Lymphocytes (%) (Auto) 17, Monocytes (%) (Auto) 11, Eosinophils (%) (Auto) 2, Basophils (%) (Auto) 1, Neutrophils # (Auto) 8.5H, Lymphocytes # (Auto) 2.2, Monocytes # (Auto) 1.4H, Eosinophils # (Auto) 0.2, Basophils # (Auto) 0.1, Immature Granulocyte # (Auto) 0.2H, Sodium Level 146H, Potassium Level 4.1, Chloride Level 100, Carbon Dioxide Level 36H, Anion Gap 10, Blood Urea Nitrogen 17, Creatinine 0.60, Estimat Glomerular Filtration Rate 99, BUN/Creatinine Ratio 28, Glucose Level 85, Calcium Level 9.1 Microbiology 04/08/21 Urine Culture - Final, Complete NO GROWTH 04/08/21 Throat Culture - Final, Complete No Beta Strep isolated 04/08/21 Blood Culture - Preliminary, Resulted No growth Home Meds Active Cefdinir 300 Mg Capsule 300 Mg PO BID 5 Days Prednisone 10 Mg Tab.ds.pk 10 Mg PO DAILY Take 6 tabs(60mg)daily,decrease by 1 tab(10MG)daily. Reported Iprat-Albut 0.5-3(2.5) mg/3 ml (Ipratropium/Albuterol Sulfate) 3 Ml Ampul.neb 3 Ml NEB QID PRN Ibuprofen 200 Mg Tablet 600 Mg PO Q8H PRN Vitamin D3 (Cholecalciferol (Vitamin D3)) 125 Mcg Tablet 125 Mcg PO DAILY Proair Digihaler (Albuterol Sulfate) 90 Mcg Aer.pw.bas 2 Puff INH Q6H PRN Ativan (Lorazepam) 0.5 Mg Tablet 0.5 Mg PO HS PRN Levothyroxine Sodium 137 Mcg Tablet 137 Mcg PO DAILY Anoro Ellipta 62.5-25 Mcg INH (Umeclidinium Brm/Vilanterol Tr) 1 Each Blst.w.dev 1 Puff INH DAILY Famotidine 20 Mg Tablet 20 Mg PO DAILY Hydrocodone-Acetamin 10-325 mg (Hydrocodone/Acetaminophen) 1 Each Tablet 1 Ea PO BID PRN Assessment/Pt Instructions Take medications as prescribed. Follow up with your PCP. Return with worsening symptoms. Discharge Planning: <30 minutes discharge planning Discharge Instructions Discharge Diet: No Restrictions Activity as Tolerated: Yes Discharge Physical Examination Vital Signs Vital Signs Date Time Temp Pulse Resp B/P (MAP) Pulse Ox O2 Delivery O2 Flow Rate FiO2 04/11/21 12:02 36.7 91 20 101/54 (70) 96 NIV Bilevel 30.00 04/09/21 01:06 32 General Appearance: No Apparent Distress, WD/WN, Obese HEENT: PERRL/EOMI, Pharynx Normal Respiratory: Lungs Clear, Normal Breath Sounds, No Respiratory Distress Cardiovascular: Regular Rate, Rhythm, No Edema, No Murmur Gastrointestinal: Normal Bowel Sounds, Non Tender, Soft Extremity: Normal Inspection, Non Tender, No Pedal Edema Skin: Normal Color, Warm/Dry Neurologic/Psychiatric: Alert, Oriented x3, No Motor/Sensory Deficits, Normal Mood/Affect Allergies: Coded Allergies: latex (Verified Allergy, Unknown, 04/08/21) Discharge Summary Date of Admission Apr 08, 2021 at 22:00 Date of Discharge Discharge Date: Apr 11, 2021 Discharge Time: 16:00 Admission Diagnosis Acute on chronic respiratory failure with hypoxia and hypercapnia Comfort Measures/ Plan: developed treatment plan Time spent on discussion (min): 5 Discharge Diagnosis Acute on chronic respiratory failure with hypoxia and hypercapnia COPD with acute exacerbation Community acquired pneumonia (1) Acute on chronic respiratory failure with hypoxia and hypercapnia Status: Acute (2) COPD with acute exacerbation Status: Acute (3) PNA (pneumonia) Status: Acute (4) Obesity Status: Chronic (5) Hypothyroidism Status: Chronic (6) GERD (gastroesophageal reflux disease) Status: Chronic KURTIS LOPEZ MD Apr 11, 2021 15:48
[2021-04-11 19:38] VITALS: BP 101/54
== END 2021-04-11 19:35 | disposition home or self-care (01) | DRG 193 ==
LOC: ER 19:53 → CSD 22:00 → 4TH 04-10 14:56
PROVIDERS: ADMIT Internal Medicine; ATTEND Internal Medicine
PROC: 5A09357 Assistance with Respiratory Ventilation, Less than 24 Consecutive Hours, Continuous Positive Airway Pressure (ICD-10-PCS; principal; 2021-04-09)
DX: J18.9 Pneumonia, unspecified organism (principal); J96.21 Acute and chronic respiratory failure with hypoxia; J96.22 Acute and chronic respiratory failure with hypercapnia; J44.1 Chronic obstructive pulmonary disease with (acute) exacerbation; J44.0 Chronic obstructive pulmonary disease with (acute) lower respiratory infection; N39.0 Urinary tract infection, site not specified; Z20.822 Contact with and (suspected) exposure to COVID-19; E03.9 Hypothyroidism, unspecified; K21.9 Gastro-esophageal reflux disease without esophagitis; E66.9 Obesity, unspecified; Z87.891 Personal history of nicotine dependence; Z91.040 Latex allergy status; Z79.890 Hormone replacement therapy; Z79.899 Other long term (current) drug therapy; Z68.37 Body mass index [BMI] 37.0-37.9, adult
CPT/HCPCS: 36415; 71045; 80048; 80053; 80306; 81000; 82550; 82553; 82805; 83605; 83615; 83735; 83874; 83880; 84145; 84484; 85007; 85025; 85027; 85379; 85610; 85652; 85730; 86141; 87040; 87088; 87430; 87636; 93005; 93041; 94640; 94660; 94664; 94760; 99291

== ENCOUNTER → 2022-12-13 | Outpatient (CLI) | payer MEDICAID, MEDICARE ==
[~2022-12-13] MED LIST: ALBU90AE2 INH; CALC-250 PO; CEFD300C3 PO; FAMO20TA5 PO; HYDR-3820 PO; IBUP-2473 PO; IPRA3AMP31 NEB; LEVO137T2 PO; LORA-404 PO; PRED10TA22 PO; UMEC1BLS INH
== END ==
LOC: ORTHO 11:18
PROVIDERS: ATTEND Orthopaedic Surgery
DX: M25.512 Pain in left shoulder (principal)
CPT/HCPCS: 20610

== ENCOUNTER → 2023-01-26 | Outpatient (CLI) | payer MEDICAID, OTHER | LOC: ORTHO 13:04 | PROVIDERS: ATTEND Orthopaedic Surgery | DX: M25.512 Pain in left shoulder (principal) | CPT/HCPCS: 99213 ==

== ENCOUNTER → 2023-03-21 | Outpatient (CLI) | payer MEDICARE, MEDICAID ==
[~2023-03-21] MED LIST changes: +ACHYD1T PO; +ALB0.5V INH; +ASPI-999 PO; +FLUT15.845 NS; +FLUT1BLS15 IH; +HYDR-3781 PO; +KETO15CR2 TP; +METO-333 PO; +MONT-40 PO; +PNV,1TAB PO; +SERT-412 PO
== END ==
LOC: ORTHO 08:55
PROVIDERS: ATTEND Orthopaedic Surgery
DX: S52.501D Unspecified fracture of the lower end of right radius, subsequent encounter for closed fracture with routine healing (principal); X58.XXXD Exposure to other specified factors, subsequent encounter
CPT/HCPCS: 99213

== ENCOUNTER 2023-03-22 05:27 | Outpatient (CLI) | payer MEDICARE, MEDICAID ==
[~2023-03-22] VITALS: Ht 152.4 cm; Wt 93.6 kg
[~2023-03-22 05:27] MED LIST changes: -ACHYD1T PO; -ALB0.5V INH; -ASPI-999 PO; -FLUT15.845 NS; -FLUT1BLS15 IH; -HYDR-3781 PO; -KETO15CR2 TP; -METO-333 PO; -MONT-40 PO; -PNV,1TAB PO; -SERT-412 PO
[2023-03-22] MEDS ORDERED: ASPI-999 PO (12:02)
[2023-03-22] MEDS ORDERED: SERT-412 PO (12:02)
[2023-03-22] MEDS ORDERED: PNV,1TAB PO (12:02)
[2023-03-22] MEDS ORDERED: KETO15CR2 TP (12:02)
[2023-03-22] MEDS ORDERED: ALB0.5V INH (12:02)
[2023-03-22] MEDS ORDERED: METO-333 PO (12:02)
[2023-03-22] MEDS ORDERED: HYDR-3781 PO (12:02)
[2023-03-22] MEDS ORDERED: FLUT15.845 NS (12:02)
[2023-03-22] MEDS ORDERED: MONT-40 PO (12:02)
[2023-03-22] MEDS ORDERED: FLUT1BLS15 IH (12:03)
== END 2023-03-22 12:30 | disposition home or self-care (01) ==
LOC: PREOP 05:27
PROVIDERS: ATTEND Orthopaedic Surgery
DX: Z01.818 Encounter for other preprocedural examination (principal)

== ENCOUNTER 2023-03-24 05:52 | Day surgery (SDC) | payer MEDICARE, MEDICAID ==
[2023-03-24] VITALS (12 sets, daily range): BP systolic 146–166; BP diastolic 76–92
[~2023-03-24 05:52] MED LIST changes: +ALB0.5V INH; +ASPI-999 PO; +FLUT15.845 NS; +FLUT1BLS15 IH; +HYDR-3781 PO; +KETO15CR2 TP; +METO-333 PO; +MONT-40 PO; +PNV,1TAB PO; +SERT-412 PO
[2023-03-24] MEDS ORDERED: LACTATED RINGERS 1,000 ML IV PRN (07:00)
[2023-03-24] MEDS ORDERED: ceFAZolin INJECTION 2,000 MG in NS (IVPB) 50 ML 50 ML IV ONE (07:00)
[2023-03-24] MEDS ORDERED: BUPIVACAINE 0.25% 30 ML VIAL ONE (07:18)
[2023-03-24] MEDS ORDERED: fentaNYL INJECTION 100 MCG/2 ML VIAL ONE (07:20)
[2023-03-24] MEDS ORDERED: proPOfol 200 MG/20 ML (DIPRIVAN) VIAL IV ONE (07:21)
[2023-03-24] MEDS ORDERED: ONDANSETRON INJECTION 4 MG/2 ML (SDV) ONE (07:21)
[2023-03-24] MEDS ORDERED: LIDOCAINE PF 2% 5 ML VIAL ONE (07:21)
--- NOTE | 2023-03-24 07:49 | Progress Note-Pre Operative ---
Pre-Operative Progress Note Date of Available H&P: Mar 21, 2023 Date H&P Reviewed: Mar 24, 2023 Time H&P Reviewed: 07:40 History & Physical: H&P Reviewed, Patient Examed, No changes noted Pre-Operative Diagnosis: Right Distal Radius Fracture LYNSEY CASTANEDA MD Mar 24, 2023 07:49
[2023-03-24] MEDS ORDERED: SEVOFLURANE (ULTANE) 15 ML INHAL SOLN ONE (08:40)
--- NOTE | 2023-03-24 08:40 | Operative Report - Ortho ---
Operative Report Surgeon (s)/Automobile Accessories Installer (s) Surgeon LYNSEY CASTANEDA MD Automobile Accessories Installer n/a Pre-Operative Diagnosis Right Distal Radius Fracture Post-Operative Diagnosis same Operative Report Date of Procedure: Mar 24, 2023 Name of Procedure Performed: Closed Reduction and Percutaneous Pinning of Right Distal Radius Fracture Description & Findings After obtaining informed consent and marking the patient in the preop holding area, patient was administered IV antibiotics. Patient was taken to the operating room and general anesthesia was induced. Surgical timeout was taken. Right arm was prepped and draped in the usual sterile fashion. Closed reduction was performed with traction, flexion, and slight ulnar deviation. A K-wire was then introduced over the radial styloid position and across the fracture site directed volarly; wire position was confirmed on the C-arm. A 2nd slightly small diameter K-wire was introduced from the ulnar side of the distal radius and directed volarly across the fracture site; position of this wire was confirmed. A 3rd wire was then placed from the radial styloid position. Fracture reduction and wire positions were confirmed. All wires were then bent, cut, and capped. Final C-arm images were obtained and sent to PACS. Pin sites and wrist were dressed with xeroform, 4x4s, cast padding, volar splint and TAI wrap. Patient tolerated the procedure well and was stable to the recovery room. Anesthesia Type General Estimated Blood Loss minimal Specimen(s) collected/removed None LYNSEY CASTANEDA MD Mar 24, 2023 08:40
[2023-03-24] MEDS ORDERED: ACHYD1T PO (08:43)
--- NOTE | 2023-03-24 08:50 | Anesthesia-General Post-Op ---
General Patient Condition Mental Status/LOC: Same as Preop Cardiovascular: Satisfactory Nausea/Vomiting: Absent Respiratory: Satisfactory Pain: Controlled Complications: Absent Post Op Complications Complications None Follow Up Care/Instructions Patient Instructions None needed. Anesthesia/Patient Condition Patient Condition Patient is doing well, no complaints, stable vital signs, no apparent adverse anesthesia problems. No complications reported per nursing. JAVID SCRUGGS CRNA Mar 24, 2023 08:50
[2023-03-24] MEDS ORDERED: morphine INJ 10 MG/ML 1ML (SYR OR VIAL) ONE (08:54)
[2023-03-24] MEDS ORDERED: PROMETHAZINE INJ 25 MG/ML (PHENERGAN) AMP IVP ONE (09:00)
[2023-03-24] MEDS ORDERED: morphine INJ 10 MG/ML 1ML (SYR OR VIAL) IVP ONE (09:00)
[2023-03-24] MEDS ORDERED: ONDANSETRON INJECTION 4 MG/2 ML (SDV) IVP PRN (09:00)
[2023-03-24] MEDS ORDERED: HYDROmorphone INJECTION 2 MG/ML VIAL IV ONE (09:00)
--- NOTE | 2023-03-24 09:52 | Diagnostic Imaging Report ---
INDICATION: Wrist fracture. COMPARISON: 03/17/2023 TOTAL FLUOROSCOPY TIME: 33 seconds Total number of fluoroscopic images saved: 2 FINDINGS: Multiple intraoperative image intensifier views of the right wrist were obtained and show placement of PATI wires through the distal radial fracture fragments. Fracture fragments appear grossly well aligned. Please note, interpreting radiologist was not present during the procedure. IMPRESSION: 1. Fluoroscopic guidance provided intraoperatively as above. Dictated by: Dictated on workstation # [id number]
[2023-03-24] MEDS ORDERED: HYDROcodone/ACETAMINOPHEN 10/325 TABLET PO ONE (11:00)
== END 2023-03-24 11:35 | disposition home or self-care (01) ==
LOC: SDC 05:52
PROVIDERS: ATTEND Orthopaedic Surgery
DX: S52.531A Colles' fracture of right radius, initial encounter for closed fracture (principal); E66.01 Morbid (severe) obesity due to excess calories; G47.33 Obstructive sleep apnea (adult) (pediatric); J44.9 Chronic obstructive pulmonary disease, unspecified; W01.0XXA Fall on same level from slipping, tripping and stumbling without subsequent striking against object, initial encounter; Z68.41 Body mass index [BMI] 40.0-44.9, adult; Z87.891 Personal history of nicotine dependence
CPT/HCPCS: 76000; 87081

== ENCOUNTER → 2023-03-30 | Outpatient (CLI) | payer MEDICARE, MEDICAID ==
[~2023-03-30] MED LIST changes: +ACHYD1T PO
== END ==
LOC: ORTHO 10:00
PROVIDERS: ATTEND Orthopaedic Surgery
DX: Z47.89 Encounter for other orthopedic aftercare (principal)

== ENCOUNTER → 2023-04-05 | Outpatient (CLI) | payer MEDICARE, MEDICAID | LOC: ORTHO 11:05 | PROVIDERS: ATTEND Orthopaedic Surgery | DX: Z47.89 Encounter for other orthopedic aftercare (principal) ==

== ENCOUNTER → 2023-04-19 | Outpatient (CLI) | payer MEDICARE, MEDICAID ==
--- NOTE | 2023-04-19 13:13 | Diagnostic Imaging Report ---
INDICATION: Distal radial fracture AP and lateral views of the right wrist are obtained There is overlying cast in place. There are 2 pins across distal radial fracture involving the radial styloid. There is anatomic alignment of fracture fragments. Remaining structures are intact. IMPRESSION: Anatomic alignment of distal radial fracture with [address] Dictated by: Dictated on workstation # [id number]
== END ==
LOC: ORTHO 09:34
PROVIDERS: ATTEND Orthopaedic Surgery
DX: Z47.89 Encounter for other orthopedic aftercare (principal)
CPT/HCPCS: 73100

== ENCOUNTER → 2023-05-24 | Outpatient (CLI) | payer MEDICARE, MEDICAID ==
--- NOTE | 2023-05-24 17:22 | Diagnostic Imaging Report ---
INDICATION: POSTOPERATIVE VISIT TECHNIQUE: 2 views of the right wrist CORRELATION STUDY: 04/19/2023 FINDINGS: Cast and external fixation pins have been removed. Deformity distal radius compatible with what appears be largely healed fracture. Residual fracture line is not visualized. There is diffuse generalized bony mineralization of the osseous structures likely owing to disuse basis of. Ununited ulnar styloid process fracture is present. There is a prominent, generalized soft tissue edema. IMPRESSION: 1. Interval external fixation pin removal in the distal right radius. The previous fracture appears largely healed. No residual fracture line. Alignment near-anatomic. Continued generalized edema. Dictated by: Dictated on workstation # [id number]
== END ==
LOC: ORTHO 10:48
PROVIDERS: ATTEND Orthopaedic Surgery
DX: Z09 Encounter for follow-up examination after completed treatment for conditions other than malignant neoplasm (principal)
CPT/HCPCS: 73100